=== PATIENT | female | born 1975 | race Two or more races ===

== ENCOUNTER 2025-01-29 14:16 | Inpatient (IN) | payer OTHER ==
[~2025-01-29] VITALS: Ht 165.1 cm; Wt 70.3 kg
[2025-01-29] MEDS ORDERED: ONDANSETRON HCL 2 MG/ML VIAL IV ONE (15:45)
[2025-01-29] MEDS ORDERED: FAMOTIDINE/PF 20 MG/2 ML VIAL IV ONE (15:45)
[2025-01-29] MEDS ORDERED: 0.9 % SODIUM CHLORIDE 1,000 ML IV ONE (15:45)
[2025-01-29] MEDS ORDERED: METHYLPREDNISOLONE SOD SUCC 125 MG VIAL ONE (15:51)
[2025-01-29] MEDS ORDERED: DIPHENHYDRAMINE HCL 50 MG/ML VIAL 1ML ONE (15:51)
[2025-01-29] MEDS ORDERED: ONDANSETRON HCL 2 MG/ML VIAL ONE (15:51)
[2025-01-29] MEDS ORDERED: FAMOTIDINE/PF 20 MG/2 ML VIAL ONE (15:52)
[2025-01-29] MEDS ORDERED: DIPHENHYDRAMINE HCL 50 MG/ML VIAL 1ML IV SCH (16:00)
[2025-01-29] MEDS ORDERED: METHYLPREDNISOLONE SOD SUCC 125 MG VIAL IV SCH (16:00)
[2025-01-29] MEDS ORDERED: MORPHINE SULFATE 4 MG/ML CARTRIDGE IV ONE (16:00)
[2025-01-29 16:10] LABS: BASO % 0.2 % (0.1-1.2); EOS # 0.08 (0.04-0.54); EOS % 0.7 % (0.7-7.0); LYMPH # 1.06 (1.18-3.74); LYMPH % 9.8 % (19.3-53.1); MEAN PLATELET VOLUME 9.80 fl (9.4-12.4); MONO # 0.43 (0.24-0.82); MONO % 4.0 % (4.7-12.5); NEUT # 9.14 (1.56-6.13); NEUT % 84.9 % (34.0-71.1); RED CELL DISTRIBUTION WIDTH 13.4 % (11.6-14.4)
[2025-01-29 16:48] LABS: INR 1.14
[2025-01-29 17:02] LABS: ALT/SGPT 76.0 U/L (12-78); AST/SGOT 43.0 U/L (15-37); BILIRUBIN TOTAL 0.96 mg/dL (0.3-1.2); BUN CREA RATIO 10.0 (7.0-25.0); CREATININE SERUM 1.03 mg/dL (0.55-1.02); GFR 56.49; GLOBULINA 3.0 G/DL (2.4-3.5); GLUCOSE FASTING 131.0 mg/dL (65-100); OSMOLALITY SERUM 282.0 MOSM/KG (275-295)
[2025-01-29] MEDS ORDERED: MORPHINE SULFATE 2 MG/ML SYRINGE IV STA (17:25)
[2025-01-29] MEDS ORDERED: CIPROFLOXACIN IN 5 % DEXTROSE 400 MG/200 ML PIGGYBAG IV ONE (20:30)
[2025-01-29] MEDS ORDERED: METRONIDAZOLE/SODIUM CHLORIDE 500 MG/100 ML PIGGYBACK IV ONE ×2 (20:30)
[2025-01-29] MEDS ORDERED: MORPHINE SULFATE 4 MG/ML CARTRIDGE IV PRN (22:00)
[2025-01-29] MEDS ORDERED: PANTOPRAZOLE SODIUM 40 MG in 0.9 % SODIUM CHLORIDE 8 ML IV PUSH SCH (22:01)
[2025-01-29] MEDS ORDERED: ATORVASTATIN CALCIUM 20 MG TABLET PO SCH (22:05)
[2025-01-29] MEDS ORDERED: VERAPAMIL HCL 120 MG TABLET PO SCH (22:05)
[2025-01-29] MEDS ORDERED: 0.9 % SODIUM CHLORIDE 1,000 ML IV SCH (22:15)
[2025-01-29 23:17] LABS: URINE APPEARANCE Clear; URINE BILIRRUBIN Negative (NEGATIVE); URINE BLOOD Negative; URINE COLOR Yellow; URINE KETONE 15 (NEGATIVE); URINE LEUKOCYTE Negative; URINE NITRATE Negative; URINE PROTEIN Negative (NEGATIVE); URINE UROBILINOGEN 1.0 E.U./dl
[2025-01-29 23:21] LABS: URINE BACTERIA 21.5 uL (0.0-1933); URINE EPITHELIAL CELLS 7.3 uL (0.0-38.8); URINE RBC 2.9 uL (0.0-20.8); URINE WBC 8.6 uL (0.0-23.2)
[2025-01-29 23:32] LABS: URINE CAST 0.14 uL (0.0-1.40); URINE GLUCOSE 100 MG/DL (NEGATIVE)
[2025-01-30] MEDS ORDERED: PIPERACILLIN/TAZOBACTAM SODIUM 3.375 GM in 0.9 % SODIUM CHLORIDE 100 ML IV SCH
[2025-01-30 00:34] VITALS: BP 97/53; O2SAT 95
[2025-01-30 01:46] VITALS: BP 95/50
[2025-01-30 03:19] VITALS: BP 102/48; O2SAT 97
[2025-01-30 08:00] VITALS: BP 91/55; O2SAT 95
[2025-01-30] MEDS ORDERED: CIPROFLOXACIN IN 5 % DEXTROSE 400 MG/200 ML PIGGYBAG IV NR (12:00)
[2025-01-30] MEDS ORDERED: KETOROLAC TROMETHAMINE 30 MG VIAL IV SCH (13:00)
[2025-01-30 16:00] VITALS: BP 96/60; O2SAT 97
[2025-01-30 16:16] LABS: BUN CREA RATIO 13.0 (7.0-25.0); CHOL HDL RATIO 2.4 (0-5.0); CREATININE SERUM 0.8 mg/dL (0.55-1.02); GFR 75.62; GLUCOSE FASTING 105.0 mg/dL (65-100); HDL 60.0 mg/dl (40-60); LDL 77.0 mg/dl (0-130); OSMOLALITY SERUM 284.0 MOSM/KG (275-295); VLDL 9.0 (0-39)
[2025-01-30] MEDS ORDERED: AA 4.25%/CAL/LYTES/DEXT 5% 1,000 ML PERIFERAL SCH (17:00)
[2025-01-30] MEDS ORDERED: CIPROFLOXACIN IN 5 % DEXTROSE 400 MG/200 ML PIGGYBAG IV SCH (21:00)
[2025-01-31 01:40] VITALS: BP 102/63; O2SAT 100
[2025-01-31] MEDS ORDERED: 0.9 % SODIUM CHLORIDE 10 ML VIAL IJ ONE (07:28)
[2025-01-31 09:32] VITALS: BP 96/63; O2SAT 96
[2025-01-31 12:03] LABS: BUN CREA RATIO 28.0 (7.0-25.0); CREATININE SERUM 0.72 mg/dL (0.55-1.02); GFR 85.4; GLUCOSE FASTING 180.0 mg/dL (65-100); OSMOLALITY SERUM 288.0 MOSM/KG (275-295)
[2025-01-31 13:14] LABS: BASO % 0.2 % (0.1-1.2); EOS # 0.02 (0.04-0.54); EOS % 0.2 % (0.7-7.0); LYMPH # 0.86 (1.18-3.74); LYMPH % 7.1 % (19.3-53.1); MEAN PLATELET VOLUME 10.00 fl (9.4-12.4); MONO # 0.62 (0.24-0.82); MONO % 5.1 % (4.7-12.5); NEUT # 10.51 (1.56-6.13); NEUT % 87.1 % (34.0-71.1); RED CELL DISTRIBUTION WIDTH 14.2 % (11.6-14.4)
[2025-01-31 18:23] VITALS: BP 122/76; O2SAT 96
[2025-02-01 00:20] VITALS: BP 96/54; O2SAT 94
[2025-02-01 08:52] VITALS: BP 96/62; O2SAT 94
[2025-02-01] MEDS ORDERED: METOPROLOL TARTRATE 5MG/5ML AMPUL IV PRN (15:45)
[2025-02-01 16:45] VITALS: BP 109/72; O2SAT 97
[2025-02-01 18:21] VITALS: O2SAT 98
[2025-02-02 01:58] VITALS: BP 106/68; O2SAT 97
[2025-02-02] MEDS ORDERED: DIATRIZOATE MEGLUMINE, SODIUM 30 ML BOTTLE PO NR (06:00)
[2025-02-02 08:00] VITALS: BP 101/64; O2SAT 95
[2025-02-02 09:00] LABS: BASO % 0.1 % (0.1-1.2); EOS # 0.37 (0.04-0.54); EOS % 3.5 % (0.7-7.0); LYMPH # 1.15 (1.18-3.74); LYMPH % 10.9 % (19.3-53.1); MEAN PLATELET VOLUME 10.20 fl (9.4-12.4); MONO # 0.70 (0.24-0.82); MONO % 6.6 % (4.7-12.5); NEUT # 8.27 (1.56-6.13); NEUT % 78.6 % (34.0-71.1); RED CELL DISTRIBUTION WIDTH 14.1 % (11.6-14.4)
[2025-02-02 09:39] LABS: BUN CREA RATIO 31.0 (7.0-25.0); CREATININE SERUM 0.54 mg/dL (0.55-1.02); GFR 119.02; GLUCOSE FASTING 119.0 mg/dL (65-100); OSMOLALITY SERUM 288.0 MOSM/KG (275-295)
[2025-02-02] MEDS ORDERED: METHYLPREDNISOLONE SOD SUCC 40 MG VIAL IV SCH (10:30)
[2025-02-02] MEDS ORDERED: DIPHENHYDRAMINE HCL 12.5 MG/5 ML BLIST.PACK PO SCH (10:30)
[2025-02-02] MEDS ORDERED: DIPHENHYDRAMINE HCL 50 MG/ML VIAL 1ML IV SCH (11:15)
[2025-02-02 16:00] VITALS: BP 130/81; O2SAT 97
[2025-02-03 01:47] VITALS: BP 109/63; O2SAT 97
[2025-02-03 06:40] LABS: BASO % 0.1 % (0.1-1.2); EOS # 0.36 (0.04-0.54); EOS % 4.6 % (0.7-7.0); LYMPH # 1.01 (1.18-3.74); LYMPH % 12.9 % (19.3-53.1); MEAN PLATELET VOLUME 10.20 fl (9.4-12.4); MONO # 0.69 (0.24-0.82); MONO % 8.8 % (4.7-12.5); NEUT # 5.73 (1.56-6.13); NEUT % 73.2 % (34.0-71.1); RED CELL DISTRIBUTION WIDTH 13.9 % (11.6-14.4)
[2025-02-03 08:33] LABS: ALT/SGPT 22.0 U/L (12-78); AST/SGOT 16.0 U/L (15-37); BILIRUBIN TOTAL 0.42 mg/dL (0.3-1.2); BUN CREA RATIO 29.0 (7.0-25.0); CREATININE SERUM 0.55 mg/dL (0.55-1.02); GFR 116.53; GLOBULINA 2.3 G/DL (2.4-3.5); GLUCOSE FASTING 124.0 mg/dL (65-100); OSMOLALITY SERUM 286.0 MOSM/KG (275-295)
[2025-02-03 10:07] VITALS: BP 125/79; O2SAT 97
[2025-02-03] MEDS ORDERED: PIPERACILLIN/TAZOBACTAM SODIUM 4.5 GM VIAL IV SCH (12:00)
[2025-02-03] MEDS ORDERED: fentaNYL CITRATE 50 MCG/ML AMPUL IV PUSH ONE (16:15)
[2025-02-03] MEDS ORDERED: MIDAZOLAM HCL 2 MG/2 ML VIAL IV PUSH ONE (16:15)
[2025-02-03 16:51] VITALS: BP 111/71; O2SAT 97
[2025-02-04 01:15] VITALS: BP 118/74; O2SAT 97
[2025-02-04 08:00] VITALS: BP 117/77; O2SAT 96
[2025-02-04 16:00] VITALS: BP 133/80; O2SAT 97
[2025-02-05 01:19] VITALS: BP 117/72; O2SAT 98
[2025-02-05 08:55] VITALS: BP 109/73; O2SAT 95
[2025-02-05] MEDS ORDERED: ENOXAPARIN SODIUM 40 MG/0.4 ML SYRINGE SUBCUTANEO NR (12:30)
[2025-02-05] MEDS ORDERED: PANTOPRAZOLE SODIUM 40 MG TABLET.DR PO NR (12:30)
[2025-02-05 16:00] VITALS: BP 120/74; O2SAT 97
[2025-02-06 00:15] VITALS: BP 118/78; O2SAT 97
[2025-02-06 08:08] LABS: BUN CREA RATIO 23.0 (7.0-25.0); CREATININE SERUM 0.61 mg/dL (0.55-1.02); GFR 103.4; GLUCOSE FASTING 98.0 mg/dL (65-100); OSMOLALITY SERUM 282.0 MOSM/KG (275-295)
[2025-02-06 08:13] LABS: BASO % 0.2 % (0.1-1.2); EOS # 0.35 (0.04-0.54); EOS % 3.7 % (0.7-7.0); LYMPH # 1.63 (1.18-3.74); LYMPH % 17.4 % (19.3-53.1); MEAN PLATELET VOLUME 10.10 fl (9.4-12.4); MONO # 0.66 (0.24-0.82); MONO % 7.1 % (4.7-12.5); NEUT # 6.64 (1.56-6.13); NEUT % 71.0 % (34.0-71.1); RED CELL DISTRIBUTION WIDTH 13.5 % (11.6-14.4)
[2025-02-06 08:19] VITALS: BP 105/67; O2SAT 96
[2025-02-06] MEDS ORDERED: ENOXAPARIN SODIUM 40 MG/0.4 ML SYRINGE SUBCUTANEO SCH (09:00)
[2025-02-06] MEDS ORDERED: PANTOPRAZOLE SODIUM 40 MG TABLET.DR PO SCH (09:00)
[2025-02-06 15:00] VITALS: BP 121/70
[2025-02-07] VITALS: BP 105/71; O2SAT 96
[2025-02-07 06:27] LABS: BASO % 0.2 % (0.1-1.2); EOS # 0.35 (0.04-0.54); EOS % 3.5 % (0.7-7.0); LYMPH # 1.65 (1.18-3.74); LYMPH % 16.4 % (19.3-53.1); MEAN PLATELET VOLUME 9.90 fl (9.4-12.4); MONO # 0.69 (0.24-0.82); MONO % 6.8 % (4.7-12.5); NEUT # 7.30 (1.56-6.13); NEUT % 72.4 % (34.0-71.1); RED CELL DISTRIBUTION WIDTH 13.4 % (11.6-14.4)
[2025-02-07 06:45] LABS: INR 1.1
[2025-02-07 07:10] LABS: ALT/SGPT 27.0 U/L (12-78); AST/SGOT 21.0 U/L (15-37); BILIRUBIN TOTAL 0.43 mg/dL (0.3-1.2); BILIRUBIN,CONJUGATED 0.11 mg/dL (0.0-0.2); BUN CREA RATIO 23.0 (7.0-25.0); CHOL HDL RATIO 6.8 (0-5.0); CREATININE SERUM 0.6 mg/dL (0.55-1.02); GFR 105.39; GLOBULINA 3.5 G/DL (2.4-3.5); GLUCOSE FASTING 103.0 mg/dL (65-100); HDL 22.0 mg/dl (40-60); LDL 99.0 mg/dl (0-130); OSMOLALITY SERUM 280.0 MOSM/KG (275-295); VLDL 29.0 (0-39)
[2025-02-07 08:36] VITALS: BP 116/77; O2SAT 99
[2025-02-07 09:29] LABS: UREA CLEARANCE 55.7 ML/MIN
[2025-02-07] MEDS ORDERED: INSULIN LISPRO 1,000 UNIT/10 ML UNITS SUBCUTANEO PRN (12:45)
[2025-02-07] MEDS ORDERED: DEXTROSE 50 % IN WATER 0.5 G/ML DISP.SYRIN IV PRN (12:45)
[2025-02-07 15:44] VITALS: O2SAT 99
[2025-02-07 17:08] VITALS: BP 117/75; O2SAT 98
[2025-02-07] MEDS ORDERED: CLOTRIMAZOLE 10 MG TROCHE MM NR (19:00)
[2025-02-07] MEDS ORDERED: CLOTRIMAZOLE 10 MG TROCHE MM SCH (21:00)
[2025-02-08 03:46] VITALS: BP 109/71; O2SAT 98
[2025-02-08] MEDS ORDERED: DIATRIZOATE MEGLUMINE, SODIUM 30 ML BOTTLE PO NR (05:00)
[2025-02-08] MEDS ORDERED: DIPHENHYDRAMINE HCL 50 MG/ML VIAL 1ML IV NR (05:00)
[2025-02-08] MEDS ORDERED: METHYLPREDNISOLONE SOD SUCC 40 MG VIAL IV NR (05:00)
[2025-02-08 08:00] VITALS: BP 108/72; O2SAT 99
[2025-02-08] MEDS ORDERED: CEFTRIAXONE SODIUM 2,000 MG in 0.9 % SODIUM CHLORIDE 100 ML IV SCH (11:30)
[2025-02-08 16:00] VITALS: BP 118/76; O2SAT 96
[2025-02-08 23:57] VITALS: BP 107/62; O2SAT 98
[2025-02-09 08:00] VITALS: BP 110/75; O2SAT 98
[2025-02-09] MEDS ORDERED: CEFTRIAXONE SODIUM 2,000 MG in 0.9 % SODIUM CHLORIDE 100 ML IV SCH (09:00)
[2025-02-09 16:38] VITALS: BP 113/72; O2SAT 96
[2025-02-10 00:51] VITALS: BP 101/65; O2SAT 99
[2025-02-10 08:00] VITALS: BP 102/67; O2SAT 96
[2025-02-10] MEDS ORDERED: FLUCONAZOLE 200 MG TABLET PO SCH (09:00)
[2025-02-10] MEDS ORDERED: FLUCONAZOLE 100 MG TABLET PO SCH (09:00)
[2025-02-10 18:11] VITALS: BP 120/78; O2SAT 98
[2025-02-11 02:15] VITALS: BP 106/69; O2SAT 96
[2025-02-11 08:00] VITALS: BP 109/75; O2SAT 96
[2025-02-11] MEDS ORDERED: MIDAZOLAM HCL 2 MG/2 ML VIAL IV PUSH ONE (16:45)
[2025-02-11] MEDS ORDERED: fentaNYL CITRATE 50 MCG/ML AMPUL IV PUSH ONE (16:45)
[2025-02-11 18:04] VITALS: BP 124/72; O2SAT 98
[2025-02-12 01:16] VITALS: BP 97/59; O2SAT 95
[2025-02-12 09:43] VITALS: BP 102/68; O2SAT 96
[2025-02-12] MEDS ORDERED: ENOXAPARIN SODIUM 40 MG/0.4 ML SYRINGE SUBCUTANEO SCH (12:38)
[2025-02-12 16:00] LABS: BASO % 0.4 % (0.1-1.2); EOS # 0.51 (0.04-0.54); EOS % 6.3 % (0.7-7.0); LYMPH # 2.25 (1.18-3.74); LYMPH % 27.7 % (19.3-53.1); MEAN PLATELET VOLUME 9.60 fl (9.4-12.4); MONO # 0.53 (0.24-0.82); MONO % 6.5 % (4.7-12.5); NEUT # 4.77 (1.56-6.13); NEUT % 58.9 % (34.0-71.1); RED CELL DISTRIBUTION WIDTH 13.7 % (11.6-14.4)
[2025-02-12 17:07] LABS: BUN CREA RATIO 13.0 (7.0-25.0); CREATININE SERUM 0.71 mg/dL (0.55-1.02); GFR 86.79; GLUCOSE FASTING 111.0 mg/dL (65-100); OSMOLALITY SERUM 281.0 MOSM/KG (275-295)
[2025-02-12 17:44] VITALS: BP 108/74; O2SAT 96
[2025-02-13 00:30] VITALS: BP 104/59; O2SAT 97
[2025-02-13 08:47] VITALS: BP 94/60; O2SAT 94
[2025-02-13] MEDS ORDERED: DIATRIZOATE MEGLUMINE, SODIUM 30 ML BOTTLE PO NR (10:00)
[2025-02-13] MEDS ORDERED: DIPHENHYDRAMINE HCL 50 MG/ML VIAL 1ML IV SCH (10:00)
[2025-02-13 16:00] VITALS: BP 113/74; O2SAT 99
[2025-02-14 01:15] VITALS: BP 101/58; O2SAT 100
[2025-02-14 17:56] VITALS: BP 105/71; O2SAT 98
== END 2025-02-14 21:45 | disposition home or self-care (01) | DRG 394 ==
LOC: ER 14:16 → SURH 22:02
PROVIDERS: General Practice; Student in an Organized Health Care Education/Training Program; Surgery; ADMIT Colon & Rectal Surgery; ATTEND Colon & Rectal Surgery
PROC: BW21YZZ Computerized Tomography (CT Scan) of Abdomen and Pelvis using Other Contrast (ICD-10-PCS; 2025-01-29)
PROC: 02HV33Z Insertion of Infusion Device into Superior Vena Cava, Percutaneous Approach (ICD-10-PCS; 2025-01-30)
PROC: 4A12X4Z Monitoring of Cardiac Electrical Activity, External Approach (ICD-10-PCS; 2025-01-30)
PROC: BW21YZZ Computerized Tomography (CT Scan) of Abdomen and Pelvis using Other Contrast (ICD-10-PCS; 2025-02-02)
PROC: 0W9G30Z Drainage of Peritoneal Cavity with Drainage Device, Percutaneous Approach (ICD-10-PCS; principal; 2025-02-03)
PROC: BW21YZZ Computerized Tomography (CT Scan) of Abdomen and Pelvis using Other Contrast (ICD-10-PCS; 2025-02-08)
PROC: BW2GZZZ Computerized Tomography (CT Scan) of Pelvic Region (ICD-10-PCS; 2025-02-11)
PROC: BW20YZZ Computerized Tomography (CT Scan) of Abdomen using Other Contrast (ICD-10-PCS; 2025-02-12)
DX: K63.1 Perforation of intestine (nontraumatic) (principal); K62.5 Hemorrhage of anus and rectum; D72.829 Elevated white blood cell count, unspecified; B96.20 Unspecified Escherichia coli [E. coli] as the cause of diseases classified elsewhere

== ENCOUNTER 2025-02-24 07:29 | Outpatient (CLI) | payer OTHER | END 2025-02-24 07:42 | disposition home or self-care (01) | LOC: TOM 07:29 | PROVIDERS: ATTEND Internal Medicine Infectious Disease | DX: K65.1 Peritoneal abscess (principal) ==